=== PATIENT | female | born 1975 | race Caucasian/White ===

== ENCOUNTER 2017-11-21 03:28 | Inpatient (IN) | payer MEDICARE ==
[2017-11-21] MEDS: D5W-0.45 NACL + KCL 20 MEQ 1,000 ML IV (04:49)
[2017-11-21] MEDS: PANTOPRAZOLE 40 MG INJ IV (05:43)
[2017-11-21] MEDS: MEROPENEM 1 GM/50ML(PMX) 50 ML IVPB ×2 (06:55→14:22)
[2017-11-21 07:36] LABS: WHITE BLOOD COUNT 14.2 10^3/ul (4.8-10.8)
[2017-11-21 07:36] LABS: ABNORMAL IP MESSAGE 1; HEMATOCRIT 29.2 % (37.0-47.0); HEMOGLOBIN 9.5 g/dl (12.0-16.0); MEAN CORPUSCULAR HEMOGLOBIN 31.1 pg (29.0-33.0); MEAN CORPUSCULAR HGB CONC 32.5 g/dl (32.0-37.0); MEAN CORPUSCULAR VOLUME 95.7 fl (82.0-101.0); MEAN PLATELET VOLUME 14.6 fl (7.4-10.4); PLATELET COUNT 184 10^3/UL (140-415); RED BLOOD COUNT 3.05 10^6/ul (4.20-5.40)
[2017-11-21 07:41] LABS: ADD MAN DIFF? YES; POSITIVE DIFF @See below
[2017-11-21 07:49] LABS: ALANINE AMINOTRANSFERASE 23 IU/L (13-69); ALBUMIN 3.2 g/dl (3.3-4.9); ALBUMIN/GLOBULIN RATIO 0.68; ALKALINE PHOSPHATASE 78 IU/L (42-121); ANION GAP 14 (8-16); ASPARTATE AMINO TRANSFERASE 32 IU/L (15-46); BILIRUBIN,INDIRECT 0.1 mg/dl (0-1.1); BILIRUBIN,TOTAL 0.1 mg/dl (0.2-1.3); BLOOD UREA NITROGEN 22 mg/dl (7-20); CALCIUM 8.9 mg/dl (8.4-10.2); CARBON DIOXIDE 29 mmol/L (21-31); CHLORIDE 103 mmol/L (97-110); CREATININE 0.48 mg/dl (0.44-1.00); GLUCOSE 91 mg/dl (70-220); POTASSIUM 3.5 mmol/L (3.5-5.1); SODIUM 142 mmol/L (135-144); TOTAL PROTEIN 7.9 g/dl (6.1-8.1)
[2017-11-21] MEDS: LEVALBUTEROL (NEB) 0.63 MG/3 ML AMP HHN ×3 (08:57→21:46)
[2017-11-21] MEDS ORDERED: VALPROIC ACID LIQUID CUP 250 MG/5 ML CUP PO ×2 (09:00→21:00)
[2017-11-21] MEDS: OLANZAPINE 10 MG VIAL IM (09:13)
[2017-11-21] MEDS: LINEZOLID 600 MG/D5W (PMX) 300 ML IVPB (09:13)
[2017-11-21] MEDS: ENOXAPARIN 40 MG/0.4 ML SYG SC (09:16)
[2017-11-21 10:41] LABS: ANISOCYTOSIS 2+ (0-0); BAND NEUTROPHILS #M 0.5 10^3/ul (0.0-0.6); BAND NEUTROPHILS % (M) 4 % (0-4); GIANT THROMBO% (M) 7 % (0-0); HYPOCHROMASIA 1+ (0-0); LYMPHOCYTES #M 4.5 10^3/ul (0.8-2.9); LYMPHOCYTES % (M) 32 % (15-51); MICROCYTOSIS 1+ (0-0); MONOCYTE #M 1.4 10^3/ul (0.3-0.9); MONOCYTES % (M) 10 % (0-11); MYELOCYTES #M 0.2 10^3/ul (0.0-0.0); MYELOCYTES % (M) 2 % (0-0); PLATELET ESTIMATE NORMAL; PLATELET MORPHOLOGY COMMENT @See below; POIKILOCYTOSIS 1+ (0-0); POLYCHROMASIA 2+ (0-0); PROMYELOCYTES #M 0.1 10^3/ul (0-0); PROMYELOCYTES % (M) 1 % (0-0); REACTIVE LYMPHOCYTES #M 0.1 10^3/ul (0.0-0.0); REACTIVE LYMPHOCYTES% (M) 1 % (0-0); SEG NEUT #M 7.2 10^3/ul (1.6-7.5); SEGMENTED NEUTROPHILS (M) % 50 % (39-77); SMUDGE%M 5 % (0-0); TARGET CELLS 1+ (0-0)
[2017-11-21] MEDS: VALPROATE IVPB (13:11)
[2017-11-21] MEDS: DEXTROSE 5% IVPB (13:11)
[2017-11-21] MEDS: FLUCONAZOLE 400 MG/NS (PMX) 200 ML IVPB (18:23)
[2017-11-21] MEDS ORDERED: VANCOMYCIN IV PER PHARMACY XX (21:30)
[2017-11-21 22:20] LABS: LACTIC ACID 1.1 mmol/L (0.5-2.0)
[2017-11-21] MEDS: VALPROATE INJ 1,000 MG in DEXTROSE 5% 100 ML IVPB (22:22)
[2017-11-21] MEDS: PIPER-TAZO 3.375 GM IV (PMX) 100 ML IVPB (22:59)
[2017-11-21] MEDS: VANCOMYCIN 1 GM 250 ML IVPB (23:50)
[2017-11-22] MEDS: D5W-0.45 NACL + KCL 20 MEQ 1,000 ML IV ×3 (01:33→21:44)
[2017-11-22] MEDS: LEVALBUTEROL (NEB) 0.63 MG/3 ML AMP HHN ×4 (01:53→20:11)
[2017-11-22] MEDS: PANTOPRAZOLE 40 MG INJ IV (05:22)
[2017-11-22] MEDS: PIPER-TAZO 3.375 GM IV (PMX) 100 ML IVPB ×3 (05:22→21:31)
[2017-11-22] MEDS: VANCOMYCIN 750 MG in DEXTROSE 5% 150 ML IVPB ×3 (07:28→23:27)
[2017-11-22 08:06] LABS: ADD MAN DIFF? NO
[2017-11-22 08:12] LABS: WHITE BLOOD COUNT 12.2 10^3/ul (4.8-10.8)
[2017-11-22 08:12] LABS: ABNORMAL IP MESSAGE 1; BASOPHIL # 0.1 10^3/ul (0.0-0.1); BASOPHILS % 0.9 % (0.0-2.0); EOSINOPHILS # 0.2 10^3/ul (0.0-0.5); EOSINOPHILS % 1.6 % (0.0-7.0); HEMATOCRIT 29.3 % (37.0-47.0); HEMOGLOBIN 9.7 g/dl (12.0-16.0); LYMPHOCYTES # 3.7 10^3/ul (0.8-2.9); LYMPHOCYTES % 30.8 % (15.0-51.0); MEAN CORPUSCULAR HEMOGLOBIN 30.8 pg (29.0-33.0); MEAN CORPUSCULAR HGB CONC 33.1 g/dl (32.0-37.0); MEAN PLATELET VOLUME 13.2 fl (7.4-10.4); MONOCYTE # 1.5 10^3/ul (0.3-0.9); MONOCYTES % 12.6 % (0.0-11.0); NEUTROPHIL # 6.3 10^3/ul (1.6-7.5); NEUTROPHILS % 51.6 % (39.0-77.0); NUCLEATED RED BLOOD CELLS% 0.2 /100WBC (0.0-0.0); PLATELET COUNT 217 10^3/UL (140-415); RED BLOOD COUNT 3.15 10^6/ul (4.20-5.40); RED CELL DISTRIBUTION WIDTH 16.8 % (11.5-14.5)
[2017-11-22 08:18] LABS: POSITIVE DIFF @See below
[2017-11-22 08:30] LABS: BLOOD UREA NITROGEN 11 mg/dl (7-20); CALCIUM 9.2 mg/dl (8.4-10.2); CARBON DIOXIDE 24 mmol/L (21-31); CHLORIDE 103 mmol/L (97-110); CREATININE 0.37 mg/dl (0.44-1.00); GLUCOSE 93 mg/dl (70-220); SODIUM 140 mmol/L (135-144)
[2017-11-22] MEDS: VALPROATE IVPB (08:48)
[2017-11-22] MEDS: OLANZAPINE 10 MG VIAL IM (08:48)
[2017-11-22] MEDS: DEXTROSE 5% IVPB (08:48)
[2017-11-22 08:52] LABS: ANION GAP 17 (8-16); POTASSIUM 4.4 mmol/L (3.5-5.1)
[2017-11-22] MEDS: ENOXAPARIN 40 MG/0.4 ML SYG SC (09:21)
[2017-11-22 10:56] LABS: ADD UMIC YES; UR ASCORBIC ACID NEGATIVE (NEGATIVE); UR BACTERIA FEW /HPF (NONE SEEN); UR BILIRUBIN (Dip) NEGATIVE (NEGATIVE); UR BLOOD (Dip) NEGATIVE (NEGATIVE); UR CLARITY CLOUDY (CLEAR); UR COLOR YELLOW (YELLOW); UR GLUCOSE (Dip) NEGATIVE (NEGATIVE); UR KETONES (Dip) NEGATIVE (NEGATIVE); UR LEUKOCYTE ESTERASE (Dip) 3+ Leu/ul (NEGATIVE); UR NITRITE (Dip) NEGATIVE (NEGATIVE); UR NONSQUAMOUS EPITHELIAL CELL 2 /HPF (NONE SEEN); UR RBC 9 /HPF (0-5); UR SPECIFIC GRAVITY (Dip) 1.013 (1.003-1.030); UR TOTAL PROTEIN (Dip) NEGATIVE (NEGATIVE); UR UROBILINOGEN (Dip) NEGATIVE (NEGATIVE); UR WBC > 182 /HPF (0-5)
[2017-11-22] MEDS: FLUCONAZOLE 400 MG/NS (PMX) 200 ML IVPB (17:43)
[2017-11-22] MEDS: VALPROATE INJ 1,000 MG in DEXTROSE 5% 100 ML IVPB (22:21)
[2017-11-22 23:19] LABS: VANCOMYCIN,TROUGH 13.5 ug/ml (10.0-20.0)
[2017-11-23] MEDS: LEVALBUTEROL (NEB) 0.63 MG/3 ML AMP HHN ×4 (01:28→20:00)
[2017-11-23] MEDS: PIPER-TAZO 3.375 GM IV (PMX) 100 ML IVPB ×3 (05:32→21:51)
[2017-11-23] MEDS: PANTOPRAZOLE 40 MG INJ IV (05:32)
[2017-11-23] MEDS: D5W-0.45 NACL + KCL 20 MEQ 1,000 ML IV ×2 (06:00→15:34)
[2017-11-23] MEDS: VANCOMYCIN 750 MG in DEXTROSE 5% 150 ML IVPB ×3 (06:36→23:22)
[2017-11-23] MEDS: ENOXAPARIN 40 MG/0.4 ML SYG SC (08:43)
[2017-11-23] MEDS: VALPROATE IVPB (10:32)
[2017-11-23] MEDS: DEXTROSE 5% IVPB (10:32)
[2017-11-23] MEDS: OLANZAPINE 10 MG VIAL IM (11:48)
[2017-11-23] MEDS: FLUCONAZOLE 400 MG/NS (PMX) 200 ML IVPB (17:04)
[2017-11-23] MEDS: VALPROATE INJ 1,000 MG in DEXTROSE 5% 100 ML IVPB (21:35)
[2017-11-24] MEDS: D5W-0.45 NACL + KCL 20 MEQ 1,000 ML IV ×3 (02:00→23:20)
[2017-11-24] MEDS: LEVALBUTEROL (NEB) 0.63 MG/3 ML AMP HHN ×4 (02:07→20:55)
[2017-11-24] MEDS: ACETAMINOPHEN 650 MG SUPP PR (02:32)
[2017-11-24] MEDS: PIPER-TAZO 3.375 GM IV (PMX) 100 ML IVPB ×3 (05:11→22:35)
[2017-11-24] MEDS: PANTOPRAZOLE 40 MG INJ IV (05:11)
[2017-11-24 05:39] LABS: ADD MAN DIFF? NO
[2017-11-24 05:46] LABS: WHITE BLOOD COUNT 11.7 10^3/ul (4.8-10.8)
[2017-11-24 05:46] LABS: ABNORMAL IP MESSAGE 1; BASOPHIL # 0.1 10^3/ul (0.0-0.1); BASOPHILS % 1.1 % (0.0-2.0); EOSINOPHILS # 0.3 10^3/ul (0.0-0.5); EOSINOPHILS % 2.2 % (0.0-7.0); HEMATOCRIT 29.5 % (37.0-47.0); HEMOGLOBIN 9.8 g/dl (12.0-16.0); LYMPHOCYTES # 4.2 10^3/ul (0.8-2.9); LYMPHOCYTES % 35.9 % (15.0-51.0); MEAN CORPUSCULAR HEMOGLOBIN 30.8 pg (29.0-33.0); MEAN CORPUSCULAR HGB CONC 33.2 g/dl (32.0-37.0); MEAN CORPUSCULAR VOLUME 92.8 fl (82.0-101.0); MEAN PLATELET VOLUME 13.4 fl (7.4-10.4); MONOCYTE # 1.9 10^3/ul (0.3-0.9); MONOCYTES % 15.9 % (0.0-11.0); NEUTROPHIL # 4.7 10^3/ul (1.6-7.5); NEUTROPHILS % 40.3 % (39.0-77.0); NUCLEATED RED BLOOD CELLS% 0.3 /100WBC (0.0-0.0); PLATELET COUNT 364 10^3/UL (140-415); RED BLOOD COUNT 3.18 10^6/ul (4.20-5.40); RED CELL DISTRIBUTION WIDTH 17.2 % (11.5-14.5)
[2017-11-24 06:00] LABS: ANION GAP 16 (8-16); BLOOD UREA NITROGEN 6 mg/dl (7-20); CALCIUM 9.6 mg/dl (8.4-10.2); CARBON DIOXIDE 23 mmol/L (21-31); CHLORIDE 106 mmol/L (97-110); CREATININE 0.38 mg/dl (0.44-1.00); GLUCOSE 90 mg/dl (70-220); POTASSIUM 3.8 mmol/L (3.5-5.1); SODIUM 141 mmol/L (135-144)
[2017-11-24] MEDS: VANCOMYCIN 750 MG in DEXTROSE 5% 150 ML IVPB ×3 (06:03→23:15)
[2017-11-24 06:29] LABS: POSITIVE DIFF @See below
[2017-11-24] MEDS: VALPROATE IVPB (09:18)
[2017-11-24] MEDS: DEXTROSE 5% IVPB (09:18)
[2017-11-24] MEDS: ENOXAPARIN 40 MG/0.4 ML SYG SC (10:45)
[2017-11-24] MEDS: OLANZAPINE 10 MG VIAL IM (13:31)
[2017-11-24] MEDS: VALPROATE INJ 1,000 MG in DEXTROSE 5% 100 ML IVPB (21:42)
[2017-11-25] MEDS: LEVALBUTEROL (NEB) 0.63 MG/3 ML AMP HHN ×4 (02:00→20:30)
[2017-11-25] MEDS: PANTOPRAZOLE 40 MG INJ IV (06:00)
[2017-11-25] MEDS: PIPER-TAZO 3.375 GM IV (PMX) 100 ML IVPB ×2 (06:01→14:43)
[2017-11-25] MEDS: VANCOMYCIN 750 MG in DEXTROSE 5% 150 ML IVPB ×2 (06:40→16:07)
[2017-11-25 06:47] LABS: WHITE BLOOD COUNT 13.1 10^3/ul (4.8-10.8)
[2017-11-25 06:47] LABS: ABNORMAL IP MESSAGE 1; HEMOGLOBIN 9.7 g/dl (12.0-16.0); MEAN CORPUSCULAR HEMOGLOBIN 30.4 pg (29.0-33.0); MEAN CORPUSCULAR HGB CONC 32.3 g/dl (32.0-37.0); NUCLEATED RED BLOOD CELLS% 0.2 /100WBC (0.0-0.0); PLATELET COUNT 368 10^3/UL (140-415); RED BLOOD COUNT 3.19 10^6/ul (4.20-5.40); RED CELL DISTRIBUTION WIDTH 17.7 % (11.5-14.5)
[2017-11-25 06:49] LABS: POSITIVE DIFF @See below
[2017-11-25 06:50] LABS: ADD MAN DIFF? YES
[2017-11-25 06:58] LABS: ANION GAP 16 (8-16); BLOOD UREA NITROGEN 8 mg/dl (7-20); CALCIUM 9.4 mg/dl (8.4-10.2); CARBON DIOXIDE 21 mmol/L (21-31); CHLORIDE 108 mmol/L (97-110); CREATININE 0.38 mg/dl (0.44-1.00); GLUCOSE 82 mg/dl (70-220); POTASSIUM 4.2 mmol/L (3.5-5.1); SODIUM 141 mmol/L (135-144)
[2017-11-25] MEDS: D5W-0.45 NACL + KCL 20 MEQ 1,000 ML IV ×2 (08:00→18:09)
[2017-11-25 08:11] LABS: ANISOCYTOSIS 1+ (0-0); BAND NEUTROPHILS #M 0.6 10^3/ul (0.0-0.6); BAND NEUTROPHILS % (M) 5 % (0-4); EOSINOPHILS % (M) 2 % (0-7); GIANT THROMBO% (M) 3 % (0-0); HYPOCHROMASIA 1+ (0-0); LYMPHOCYTES #M 2.7 10^3/ul (0.8-2.9); LYMPHOCYTES % (M) 21 % (15-51); METAMYELOCYTES #M 0.3 10^3/ul (0.0-0.0); METAMYELOCYTES %M 3 % (0-0); MONOCYTE #M 2.7 10^3/ul (0.3-0.9); MONOCYTES % (M) 21 % (0-11); MYELOCYTES #M 0.7 10^3/ul (0.0-0.0); MYELOCYTES % (M) 6 % (0-0); PLATELET ESTIMATE NORMAL; POLYCHROMASIA 2+ (0-0); SEG NEUT #M 5.6 10^3/ul (1.6-7.5); SEGMENTED NEUTROPHILS (M) % 42 % (39-77); SMUDGE%M 7 % (0-0)
[2017-11-25] MEDS: ENOXAPARIN 40 MG/0.4 ML SYG SC (09:13)
[2017-11-25] MEDS: VALPROATE IVPB (09:13)
[2017-11-25] MEDS: DEXTROSE 5% IVPB (09:13)
[2017-11-25] MEDS: OLANZAPINE 10 MG VIAL IM (09:50)
[2017-11-25] MEDS: VALPROATE INJ 1,000 MG in DEXTROSE 5% 100 ML IVPB (20:07)
[2017-11-26] MEDS: LEVALBUTEROL (NEB) 0.63 MG/3 ML AMP HHN ×4 (01:33→19:56)
[2017-11-26] MEDS: PANTOPRAZOLE 40 MG INJ IV (05:40)
[2017-11-26] MEDS: D5W-0.45 NACL + KCL 20 MEQ 1,000 ML IV ×3 (05:41→17:59)
[2017-11-26] MEDS: VALPROATE IVPB (09:39)
[2017-11-26] MEDS: OLANZAPINE 10 MG VIAL IM (09:39)
[2017-11-26] MEDS: DEXTROSE 5% IVPB (09:39)
[2017-11-26] MEDS: ENOXAPARIN 40 MG/0.4 ML SYG SC (09:42)
[2017-11-26] MEDS: VALPROATE INJ 1,000 MG in DEXTROSE 5% 100 ML IVPB (20:14)
[2017-11-27] MEDS: LEVALBUTEROL (NEB) 0.63 MG/3 ML AMP HHN ×4 (02:29→20:55)
[2017-11-27] MEDS: PANTOPRAZOLE 40 MG INJ IV (06:10)
[2017-11-27 07:09] LABS: ADD MAN DIFF? NO
[2017-11-27 07:16] LABS: WHITE BLOOD COUNT 18.6 10^3/ul (4.8-10.8)
[2017-11-27 07:16] LABS: ABNORMAL IP MESSAGE 1; BASOPHIL # 0.1 10^3/ul (0.0-0.1); BASOPHILS % 0.4 % (0.0-2.0); EOSINOPHILS # 0.3 10^3/ul (0.0-0.5); EOSINOPHILS % 1.6 % (0.0-7.0); HEMATOCRIT 29.6 % (37.0-47.0); HEMOGLOBIN 9.8 g/dl (12.0-16.0); LYMPHOCYTES # 4.6 10^3/ul (0.8-2.9); LYMPHOCYTES % 24.9 % (15.0-51.0); MEAN CORPUSCULAR HEMOGLOBIN 31.2 pg (29.0-33.0); MEAN CORPUSCULAR HGB CONC 33.1 g/dl (32.0-37.0); MEAN CORPUSCULAR VOLUME 94.3 fl (82.0-101.0); MEAN PLATELET VOLUME 12.5 fl (7.4-10.4); MONOCYTE # 3.2 10^3/ul (0.3-0.9); MONOCYTES % 17.4 % (0.0-11.0); NEUTROPHILS % 53.7 % (39.0-77.0); PLATELET COUNT 504 10^3/UL (140-415); RED BLOOD COUNT 3.14 10^6/ul (4.20-5.40); RED CELL DISTRIBUTION WIDTH 18.2 % (11.5-14.5)
[2017-11-27 07:20] LABS: POSITIVE DIFF @See below
[2017-11-27 07:55] LABS: ANION GAP 17 (8-16); BLOOD UREA NITROGEN 8 mg/dl (7-20); CALCIUM 9.7 mg/dl (8.4-10.2); CARBON DIOXIDE 24 mmol/L (21-31); CHLORIDE 106 mmol/L (97-110); CREATININE 0.37 mg/dl (0.44-1.00); GLUCOSE 89 mg/dl (70-220); POTASSIUM 4.1 mmol/L (3.5-5.1); SODIUM 143 mmol/L (135-144)
[2017-11-27] MEDS: D5W-0.45 NACL + KCL 20 MEQ 1,000 ML IV ×2 (11:30→20:00)
[2017-11-27] MEDS: ENOXAPARIN 40 MG/0.4 ML SYG SC (11:45)
[2017-11-27] MEDS: DEXTROSE 5% IVPB (12:32)
[2017-11-27] MEDS: VALPROATE IVPB (12:32)
[2017-11-27] MEDS: OLANZAPINE (ODT) 5 MG TAB ODT (12:33)
[2017-11-27] MEDS ORDERED: LINEZOLID 600 MG/D5W (PMX) 300 ML IVPB (14:00)
[2017-11-27] MEDS: CEFEPIME 2GM/50 ML (PMX) 50 ML IVPB ×2 (14:30→22:44)
[2017-11-27 15:32] LABS: LACTIC ACID 1.4 mmol/L (0.5-2.0)
[2017-11-27] MEDS: CASPOFUNGIN 70 MG in SOD CHLORIDE 0.9% 250 ML IVPB (16:30)
[2017-11-27 17:46] LABS: ADD UMIC YES; UR ASCORBIC ACID 40 mg/dL (NEGATIVE); UR BILIRUBIN (Dip) NEGATIVE (NEGATIVE); UR BLOOD (Dip) NEGATIVE (NEGATIVE); UR CLARITY SLIGHTLY CLOUDY (CLEAR); UR COLOR YELLOW (YELLOW); UR GLUCOSE (Dip) NEGATIVE (NEGATIVE); UR KETONES (Dip) NEGATIVE (NEGATIVE); UR LEUKOCYTE ESTERASE (Dip) 3+ Leu/ul (NEGATIVE); UR NITRITE (Dip) NEGATIVE (NEGATIVE); UR RBC 1 /HPF (0-5); UR SPECIFIC GRAVITY (Dip) 1.012 (1.003-1.030); UR TOTAL PROTEIN (Dip) NEGATIVE (NEGATIVE); UR UROBILINOGEN (Dip) NEGATIVE (NEGATIVE); UR WBC 176 /HPF (0-5)
[2017-11-27 17:57] LABS: LACTIC ACID 1.5 mmol/L (0.5-2.0)
[2017-11-27] MEDS: SOD CHLORIDE 0.9% 100 ML (18:01)
[2017-11-27] MEDS: IOHEXOL 300MG/ML 150 ML BTL (18:02)
[2017-11-27] MEDS: LINEZOLID 600 MG/D5W (PMX) 300 ML IVPB (20:12)
[2017-11-27] MEDS: VALPROATE INJ 1,000 MG in DEXTROSE 5% 100 ML IVPB (21:19)
[2017-11-28] MEDS: LEVALBUTEROL (NEB) 0.63 MG/3 ML AMP HHN ×4 (01:52→19:34)
[2017-11-28 05:39] LABS: ADD MAN DIFF? NO
[2017-11-28 05:42] LABS: WHITE BLOOD COUNT 14.1 10^3/ul (4.8-10.8)
[2017-11-28 05:42] LABS: ABNORMAL IP MESSAGE 1; BASOPHILS % 0.3 % (0.0-2.0); EOSINOPHILS # 0.3 10^3/ul (0.0-0.5); EOSINOPHILS % 2.1 % (0.0-7.0); HEMATOCRIT 30.5 % (37.0-47.0); HEMOGLOBIN 9.8 g/dl (12.0-16.0); LYMPHOCYTES % 35.6 % (15.0-51.0); MEAN CORPUSCULAR HEMOGLOBIN 30.5 pg (29.0-33.0); MEAN CORPUSCULAR HGB CONC 32.1 g/dl (32.0-37.0); MEAN PLATELET VOLUME 12.6 fl (7.4-10.4); MONOCYTE # 2.3 10^3/ul (0.3-0.9); NEUTROPHIL # 6.2 10^3/ul (1.6-7.5); PLATELET COUNT 505 10^3/UL (140-415); RED BLOOD COUNT 3.21 10^6/ul (4.20-5.40); RED CELL DISTRIBUTION WIDTH 18.2 % (11.5-14.5)
[2017-11-28] MEDS: D5W-0.45 NACL + KCL 20 MEQ 1,000 ML IV ×2 (06:00→10:55)
[2017-11-28] MEDS: PANTOPRAZOLE 40 MG INJ IV (06:00)
[2017-11-28 06:03] LABS: MONOCYTES % 16.6 % (0.0-11.0); POSITIVE DIFF @See below
[2017-11-28 06:05] LABS: ANION GAP 15 (8-16); BLOOD UREA NITROGEN 11 mg/dl (7-20); CALCIUM 9.5 mg/dl (8.4-10.2); CARBON DIOXIDE 26 mmol/L (21-31); CHLORIDE 105 mmol/L (97-110); CREATININE 0.44 mg/dl (0.44-1.00); GLUCOSE 81 mg/dl (70-220); POTASSIUM 3.8 mmol/L (3.5-5.1); SODIUM 142 mmol/L (135-144)
[2017-11-28] MEDS: OLANZAPINE (ODT) 5 MG TAB ODT (09:30)
[2017-11-28] MEDS: ENOXAPARIN 40 MG/0.4 ML SYG SC (09:30)
[2017-11-28] MEDS: LINEZOLID 600 MG/D5W (PMX) 300 ML IVPB ×2 (10:47→21:59)
[2017-11-28] MEDS: CEFEPIME 2GM/50 ML (PMX) 50 ML IVPB ×2 (12:22→21:22)
[2017-11-28] MEDS: VALPROATE IVPB (12:55)
[2017-11-28] MEDS: DEXTROSE 5% IVPB (12:55)
[2017-11-28] MEDS: CASPOFUNGIN 50 MG in SOD CHLORIDE 0.9% 250 ML IVPB (14:16)
[2017-11-28] MEDS: VALPROATE INJ 1,000 MG in DEXTROSE 5% 100 ML IVPB (20:15)
[2017-11-29] MEDS: LEVALBUTEROL (NEB) 0.63 MG/3 ML AMP HHN ×5 (00:44→21:47)
[2017-11-29] MEDS: D5W-0.45 NACL + KCL 20 MEQ 1,000 ML IV ×2 (05:32→11:39)
[2017-11-29] MEDS: PANTOPRAZOLE 40 MG INJ IV (05:32)
[2017-11-29 06:40] LABS: ADD MAN DIFF? NO
[2017-11-29 06:46] LABS: ABNORMAL IP MESSAGE 1; BASOPHIL # 0.1 10^3/ul (0.0-0.1); BASOPHILS % 0.5 % (0.0-2.0); EOSINOPHILS # 0.2 10^3/ul (0.0-0.5); EOSINOPHILS % 2.1 % (0.0-7.0); HEMATOCRIT 32.1 % (37.0-47.0); HEMOGLOBIN 10.4 g/dl (12.0-16.0); LYMPHOCYTES % 36.2 % (15.0-51.0); MEAN CORPUSCULAR HEMOGLOBIN 30.5 pg (29.0-33.0); MEAN CORPUSCULAR HGB CONC 32.4 g/dl (32.0-37.0); MEAN CORPUSCULAR VOLUME 94.1 fl (82.0-101.0); MEAN PLATELET VOLUME 12.8 fl (7.4-10.4); MONOCYTE # 1.7 10^3/ul (0.3-0.9); MONOCYTES % 15.5 % (0.0-11.0); NEUTROPHIL # 4.9 10^3/ul (1.6-7.5); NEUTROPHILS % 44.5 % (39.0-77.0); PLATELET COUNT 309 10^3/UL (140-415); RED BLOOD COUNT 3.41 10^6/ul (4.20-5.40); RED CELL DISTRIBUTION WIDTH 18.1 % (11.5-14.5)
[2017-11-29 06:46] LABS: WHITE BLOOD COUNT 11.1 10^3/ul (4.8-10.8)
[2017-11-29 06:49] LABS: POSITIVE DIFF @See below
[2017-11-29 07:08] LABS: ANION GAP 15 (8-16); BLOOD UREA NITROGEN 7 mg/dl (7-20); CALCIUM 9.7 mg/dl (8.4-10.2); CARBON DIOXIDE 24 mmol/L (21-31); CHLORIDE 107 mmol/L (97-110); CREATININE 0.39 mg/dl (0.44-1.00); GLUCOSE 84 mg/dl (70-220); POTASSIUM 4.1 mmol/L (3.5-5.1); SODIUM 142 mmol/L (135-144)
[2017-11-29] MEDS: VALPROATE IVPB (08:36)
[2017-11-29] MEDS: DEXTROSE 5% IVPB (08:36)
[2017-11-29] MEDS: LINEZOLID 600 MG/D5W (PMX) 300 ML IVPB ×2 (08:36→20:57)
[2017-11-29] MEDS: OLANZAPINE (ODT) 5 MG TAB ODT (08:36)
[2017-11-29] MEDS: CEFEPIME 2GM/50 ML (PMX) 50 ML IVPB ×2 (08:36→20:22)
[2017-11-29] MEDS: ENOXAPARIN 40 MG/0.4 ML SYG SC (08:37)
[2017-11-29] MEDS: CASPOFUNGIN 50 MG in SOD CHLORIDE 0.9% 250 ML IVPB (14:29)
[2017-11-29] MEDS: VALPROATE INJ 1,000 MG in DEXTROSE 5% 100 ML IVPB (20:54)
[2017-11-30] MEDS: D5W-0.45 NACL + KCL 20 MEQ 1,000 ML IV ×4 (01:49→19:03)
[2017-11-30] MEDS: LEVALBUTEROL (NEB) 0.63 MG/3 ML AMP HHN ×4 (01:51→19:54)
[2017-11-30] MEDS: PANTOPRAZOLE 40 MG INJ IV (05:30)
[2017-11-30 07:38] LABS: ADD MAN DIFF? NO
[2017-11-30 07:50] LABS: ABNORMAL IP MESSAGE 1; BASOPHIL # 0.1 10^3/ul (0.0-0.1); BASOPHILS % 0.6 % (0.0-2.0); EOSINOPHILS # 0.2 10^3/ul (0.0-0.5); EOSINOPHILS % 2.6 % (0.0-7.0); HEMOGLOBIN 9.9 g/dl (12.0-16.0); LYMPHOCYTES # 4.1 10^3/ul (0.8-2.9); LYMPHOCYTES % 48.1 % (15.0-51.0); MEAN CORPUSCULAR HEMOGLOBIN 30.6 pg (29.0-33.0); MEAN CORPUSCULAR HGB CONC 31.9 g/dl (32.0-37.0); MEAN CORPUSCULAR VOLUME 95.7 fl (82.0-101.0); MEAN PLATELET VOLUME 13.1 fl (7.4-10.4); MONOCYTE # 1.5 10^3/ul (0.3-0.9); MONOCYTES % 17.8 % (0.0-11.0); NEUTROPHIL # 2.6 10^3/ul (1.6-7.5); PLATELET COUNT 442 10^3/UL (140-415); RED BLOOD COUNT 3.24 10^6/ul (4.20-5.40); RED CELL DISTRIBUTION WIDTH 17.8 % (11.5-14.5)
[2017-11-30 07:50] LABS: WHITE BLOOD COUNT 8.6 10^3/ul (4.8-10.8)
[2017-11-30 07:51] LABS: POSITIVE DIFF @See below
[2017-11-30] MEDS: OLANZAPINE (ODT) 5 MG TAB ODT (08:06)
[2017-11-30] MEDS: ENOXAPARIN 40 MG/0.4 ML SYG SC (08:07)
[2017-11-30] MEDS: CEFEPIME 2GM/50 ML (PMX) 50 ML IVPB ×2 (08:08→20:59)
[2017-11-30 08:09] LABS: ANION GAP 14 (8-16); BLOOD UREA NITROGEN 5 mg/dl (7-20); CALCIUM 9.4 mg/dl (8.4-10.2); CARBON DIOXIDE 26 mmol/L (21-31); CHLORIDE 104 mmol/L (97-110); CREATININE 0.41 mg/dl (0.44-1.00); GLUCOSE 73 mg/dl (70-220); POTASSIUM 3.8 mmol/L (3.5-5.1); SODIUM 140 mmol/L (135-144)
[2017-11-30] MEDS: LINEZOLID 600 MG/D5W (PMX) 300 ML IVPB ×2 (08:11→22:47)
[2017-11-30] MEDS: VALPROATE IVPB (09:39)
[2017-11-30] MEDS: DEXTROSE 5% IVPB (09:39)
[2017-11-30] MEDS: CASPOFUNGIN 50 MG in SOD CHLORIDE 0.9% 250 ML IVPB (16:53)
[2017-11-30] MEDS: VALPROATE INJ 1,000 MG in DEXTROSE 5% 100 ML IVPB (21:34)
[2017-12-01] MEDS: LEVALBUTEROL (NEB) 0.63 MG/3 ML AMP HHN ×4 (02:18→19:29)
[2017-12-01] MEDS: D5W-0.45 NACL + KCL 20 MEQ 1,000 ML IV ×2 (04:00→14:26)
[2017-12-01] MEDS: PANTOPRAZOLE 40 MG INJ IV (05:37)
[2017-12-01 06:55] LABS: ADD MAN DIFF? NO
[2017-12-01 07:01] LABS: WHITE BLOOD COUNT 8.4 10^3/ul (4.8-10.8)
[2017-12-01 07:01] LABS: ABNORMAL IP MESSAGE 1; BASOPHIL # 0.1 10^3/ul (0.0-0.1); BASOPHILS % 0.6 % (0.0-2.0); EOSINOPHILS # 0.3 10^3/ul (0.0-0.5); EOSINOPHILS % 3.1 % (0.0-7.0); HEMOGLOBIN 9.9 g/dl (12.0-16.0); LYMPHOCYTES # 4.5 10^3/ul (0.8-2.9); LYMPHOCYTES % 53.3 % (15.0-51.0); MEAN CORPUSCULAR HEMOGLOBIN 31.1 pg (29.0-33.0); MEAN CORPUSCULAR VOLUME 94.3 fl (82.0-101.0); MEAN PLATELET VOLUME 12.3 fl (7.4-10.4); MONOCYTE # 1.7 10^3/ul (0.3-0.9); MONOCYTES % 19.6 % (0.0-11.0); NEUTROPHIL # 1.9 10^3/ul (1.6-7.5); NEUTROPHILS % 22.4 % (39.0-77.0); PLATELET COUNT 447 10^3/UL (140-415); RED BLOOD COUNT 3.18 10^6/ul (4.20-5.40); RED CELL DISTRIBUTION WIDTH 17.7 % (11.5-14.5)
[2017-12-01 07:18] LABS: ANION GAP 13 (8-16); BLOOD UREA NITROGEN 3 mg/dl (7-20); CALCIUM 9.9 mg/dl (8.4-10.2); CARBON DIOXIDE 25 mmol/L (21-31); CHLORIDE 106 mmol/L (97-110); CREATININE 0.41 mg/dl (0.44-1.00); GLUCOSE 85 mg/dl (70-220); SODIUM 140 mmol/L (135-144)
[2017-12-01] MEDS: CEFEPIME 2GM/50 ML (PMX) 50 ML IVPB ×2 (09:13→21:19)
[2017-12-01] MEDS: ENOXAPARIN 40 MG/0.4 ML SYG SC (09:14)
[2017-12-01] MEDS: OLANZAPINE (ODT) 5 MG TAB ODT (09:15)
[2017-12-01] MEDS: LINEZOLID 600 MG/D5W (PMX) 300 ML IVPB ×2 (09:44→22:19)
[2017-12-01] MEDS: DEXTROSE 5% IVPB (10:44)
[2017-12-01] MEDS: VALPROATE IVPB (10:44)
[2017-12-01] MEDS: CASPOFUNGIN 50 MG in SOD CHLORIDE 0.9% 250 ML IVPB (14:25)
[2017-12-01] MEDS: VALPROATE INJ 1,000 MG in DEXTROSE 5% 100 ML IVPB (20:07)
[2017-12-02] MEDS: LEVALBUTEROL (NEB) 0.63 MG/3 ML AMP HHN ×4 (01:31→19:24)
[2017-12-02] MEDS: D5W-0.45 NACL + KCL 20 MEQ 1,000 ML IV ×2 (04:32→10:00)
[2017-12-02] MEDS: PANTOPRAZOLE 40 MG INJ IV (05:19)
[2017-12-02 06:25] LABS: ADD MAN DIFF? NO
[2017-12-02 06:40] LABS: BASOPHIL # 0.1 10^3/ul (0.0-0.1); BASOPHILS % 0.7 % (0.0-2.0); EOSINOPHILS # 0.2 10^3/ul (0.0-0.5); EOSINOPHILS % 2.6 % (0.0-7.0); HEMATOCRIT 30.5 % (37.0-47.0); HEMOGLOBIN 10.1 g/dl (12.0-16.0); LYMPHOCYTES # 4.1 10^3/ul (0.8-2.9); LYMPHOCYTES % 55.5 % (15.0-51.0); MEAN CORPUSCULAR HEMOGLOBIN 31.1 pg (29.0-33.0); MEAN CORPUSCULAR HGB CONC 33.1 g/dl (32.0-37.0); MEAN CORPUSCULAR VOLUME 93.8 fl (82.0-101.0); MEAN PLATELET VOLUME 12.7 fl (7.4-10.4); MONOCYTE # 1.4 10^3/ul (0.3-0.9); MONOCYTES % 18.2 % (0.0-11.0); NEUTROPHIL # 1.7 10^3/ul (1.6-7.5); NEUTROPHILS % 22.3 % (39.0-77.0); PLATELET COUNT 417 10^3/UL (140-415); RED BLOOD COUNT 3.25 10^6/ul (4.20-5.40); RED CELL DISTRIBUTION WIDTH 17.7 % (11.5-14.5)
[2017-12-02 06:40] LABS: WHITE BLOOD COUNT 7.4 10^3/ul (4.8-10.8)
[2017-12-02 07:04] LABS: ANION GAP 13 (8-16); BLOOD UREA NITROGEN 5 mg/dl (7-20); CALCIUM 9.7 mg/dl (8.4-10.2); CARBON DIOXIDE 28 mmol/L (21-31); CHLORIDE 105 mmol/L (97-110); CREATININE 0.46 mg/dl (0.44-1.00); GLUCOSE 83 mg/dl (70-220); POTASSIUM 3.9 mmol/L (3.5-5.1); SODIUM 142 mmol/L (135-144)
[2017-12-02] MEDS: DEXTROSE 5% IVPB (09:12)
[2017-12-02] MEDS: VALPROATE IVPB (09:12)
[2017-12-02] MEDS: CEFEPIME 2GM/50 ML (PMX) 50 ML IVPB ×2 (09:13→20:20)
[2017-12-02] MEDS: LINEZOLID 600 MG/D5W (PMX) 300 ML IVPB ×2 (09:13→22:09)
[2017-12-02] MEDS: OLANZAPINE (ODT) 5 MG TAB ODT (09:14)
[2017-12-02] MEDS: ENOXAPARIN 40 MG/0.4 ML SYG SC (09:15)
[2017-12-02] MEDS: CASPOFUNGIN 50 MG in SOD CHLORIDE 0.9% 250 ML IVPB (16:27)
[2017-12-02 18:12] LABS: PROCALCITONIN <0.10 ng/mL (<0.10)
[2017-12-02] MEDS: VALPROATE INJ 1,000 MG in DEXTROSE 5% 100 ML IVPB (20:53)
[2017-12-03] MEDS: LEVALBUTEROL (NEB) 0.63 MG/3 ML AMP HHN ×4 (01:28→14:44)
[2017-12-03] MEDS: D5W-0.45 NACL + KCL 20 MEQ 1,000 ML IV ×3 (03:59→17:11)
[2017-12-03] MEDS: PANTOPRAZOLE 40 MG INJ IV (05:33)
[2017-12-03 06:21] LABS: ADD MAN DIFF? NO
[2017-12-03 06:30] LABS: WHITE BLOOD COUNT 7.1 10^3/ul (4.8-10.8)
[2017-12-03 06:30] LABS: BASOPHIL # 0.1 10^3/ul (0.0-0.1); BASOPHILS % 0.7 % (0.0-2.0); EOSINOPHILS # 0.2 10^3/ul (0.0-0.5); EOSINOPHILS % 2.4 % (0.0-7.0); HEMATOCRIT 31.7 % (37.0-47.0); HEMOGLOBIN 10.4 g/dl (12.0-16.0); LYMPHOCYTES # 4.2 10^3/ul (0.8-2.9); LYMPHOCYTES % 60.1 % (15.0-51.0); MEAN CORPUSCULAR HEMOGLOBIN 30.9 pg (29.0-33.0); MEAN CORPUSCULAR HGB CONC 32.8 g/dl (32.0-37.0); MEAN CORPUSCULAR VOLUME 94.1 fl (82.0-101.0); MEAN PLATELET VOLUME 12.5 fl (7.4-10.4); MONOCYTE # 1.3 10^3/ul (0.3-0.9); MONOCYTES % 17.8 % (0.0-11.0); NEUTROPHIL # 1.3 10^3/ul (1.6-7.5); NEUTROPHILS % 18.6 % (39.0-77.0); PLATELET COUNT 352 10^3/UL (140-415); RED BLOOD COUNT 3.37 10^6/ul (4.20-5.40); RED CELL DISTRIBUTION WIDTH 17.3 % (11.5-14.5)
[2017-12-03 06:56] LABS: ANION GAP 15 (8-16); BLOOD UREA NITROGEN 6 mg/dl (7-20); CALCIUM 9.6 mg/dl (8.4-10.2); CARBON DIOXIDE 25 mmol/L (21-31); CHLORIDE 106 mmol/L (97-110); CREATININE 0.45 mg/dl (0.44-1.00); GLUCOSE 88 mg/dl (70-220); POTASSIUM 3.9 mmol/L (3.5-5.1); SODIUM 142 mmol/L (135-144)
[2017-12-03] MEDS: ENOXAPARIN 40 MG/0.4 ML SYG SC (08:50)
[2017-12-03] MEDS: OLANZAPINE (ODT) 5 MG TAB ODT (08:51)
[2017-12-03] MEDS: DEXTROSE 5% IVPB (10:36)
[2017-12-03] MEDS: VALPROATE IVPB (10:36)
== END 2017-12-03 18:51 | disposition home or self-care (01) | DRG 871 ==
LOC: TEL 03:28 → PP2 11-27 06:14 → TEL 17:32 → PP2 11-22 20:03
DX: A41.9 Sepsis, unspecified organism (principal); J69.0 Pneumonitis due to inhalation of food and vomit; J96.91 Respiratory failure, unspecified with hypoxia; G93.40 Encephalopathy, unspecified; Q91.7 Trisomy 13, unspecified; F84.0 Autistic disorder; E03.9 Hypothyroidism, unspecified; G40.909 Epilepsy, unspecified, not intractable, without status epilepticus; R62.50 Unspecified lack of expected normal physiological development in childhood; D64.9 Anemia, unspecified; N31.9 Neuromuscular dysfunction of bladder, unspecified; R33.9 Retention of urine, unspecified; R65.20 Severe sepsis without septic shock
CPT/HCPCS: 71045; 71260; 74177; 74230; 80048; 80053; 80202; 81001; 83605; 84145; 84703; 85025; 87040; 87081; 87086; 87275; 87276; 87279; 87280; 87400; 92526; 92610; 92611; 94640; 94664; 97116; 97163; 97530